=== PATIENT | male | born 1995 | race Caucasian/White ===

== ENCOUNTER 2018-03-28 07:04 | Emergency (ER) | payer OTHER ==
[2018-03-28 08:24] VITALS: BP 138/70; PULSE 65; TEMP 98.3; BMI 21.4
[2018-03-28] MEDS ORDERED: RANITIDINE HCL 150 MG TABLET (FP) PO ONE (08:46)
[2018-03-28] MEDS ORDERED: MAG HYDROX/AL HYDROX/SIMETH 30 ML UNIT-DOSE CUP PO ONE (08:47)
[2018-03-28] MEDS ORDERED: MAG HYDROX/AL HYDROX/SIMETH 30 ML UNIT-DOSE CUP ONE (08:55)
[2018-03-28] MEDS ORDERED: RANITIDINE HCL 150 MG TABLET (FP) ONE (08:55)
[2018-03-28 09:47] LABS: BASO % 0.3 % (0-2.0); EOS % 0.7 % (0-4.5); HEMATOCRIT 42.5 % (35.4-49); HEMOGLOBIN 14.6 GM/dL (11.7-16.9); LYMPH % 12.6 % (8-40); MCH 29.1 pg (25.7-33.7); MCHC 34.4 g/dl (32.0-35.9); MEAN CELL VOLUME 84.7 fl (80-96); MONO % 9.3 % (3.8-10.2); NEUT % 77.1 % (42.8-82.8); PLATELET COUNT 189 K/MM3 (134-434); RBC 5.01 M/mm3 (4.00-5.60); RDW 12.9 % (11.9-15.9); WHITE BLOOD COUNT 10.3 K/mm3 (4.0-10.0)
--- NOTE | 2018-03-28 09:48 | PDOC ---
History of Present Illness - General Chief Complaint: Pain, Acute Stated Complaint: PAIN Time Seen by Provider: 03/28/18 07:57 History Source: Patient - History of Present Illness Timing/Duration: reports: other Quality: reports: moderate Abdominal Pain Onset Location: reports: epigastric Pain Radiation: reports: no radiation Past History - Past Medical History Allergies/Adverse Reactions: Allergies Allergy/AdvReac Type Severity Reaction Status Date / Time No Known Allergies Allergy Verified 03/28/18 08:24 Home Medications: Ambulatory Orders Famotidine [Pepcid] 20 mg PO DAILY #14 tablet 03/28/18 Mag Hydrox/Al Hydrox/Simeth [Mylanta Suspension -] 30 ml PO Q6H #1 bottle Asthma: Yes COPD: No - Surgical History Abdominal Surgery: Yes (2 hernia repairs as a baby) - Immunization History Immunization Up to Date: Yes - Suicide/Smoking/Psychosocial Hx Smoking History: Never smoked Have you smoked in the past 12 months: No Number of Cigarettes Smoked Daily: 2 Information on smoking cessation initiated: No Hx Alcohol Use: No Drug/Substance Use Hx: No Substance Use Type: None Review of Systems - Review of Systems Constitutional: No: Chills, Fever Respiratory: No: Shortness of Breath Cardiac (ROS): No: Chest Pain ABD/GI: No: Blood Streaked Bowels, Constipated, Diarrhea, Nausea, Rectal Bleeding, Vomiting : No: Burning, Dysuria, Discharge, Flank Pain, Hematuria *Physical Exam - Vital Signs Last Vital Signs Temp Pulse Resp BP Pulse Ox 98.3 F 65 17 138/70 100 03/28/18 08:16 03/28/18 08:16 03/28/18 08:16 03/28/18 08:16 03/28/18 08:16 - Physical Exam General Appearance: Yes: Appropriately Dressed. No: Apparent Distress HEENT: positive: Normal Voice Neck: positive: Supple Respiratory/Chest: positive: Lungs Clear, Normal Breath Sounds. negative: Respiratory Distress Cardiovascular: positive: Regular Rate, S1, S2 Gastrointestinal/Abdominal: positive: Tender (to epigastrium and minimally to LUQ, NT over mcburneys and no CVAT) Musculoskeletal: negative: CVA Tenderness Integumentary: positive: Dry, Warm Neurologic: positive: Fully Oriented, Alert, Normal Mood/Affect ED Treatment Course - LABORATORY CBC & Chemistry Diagram: 03/28/18 09:18 03/28/18 09:18 - RADIOLOGY Radiology Studies Ordered: Category Date Time Status CHEST PA & LAT [RAD] Stat Radiology 03/28/18 08:46 Ordered - Medications Given in the ED: ED Medications Discontinued Medications Generic Name Dose Route Start Last Admin Trade Name Danae PRN Reason Stop Dose Admin Al Hydroxide/Mg Hydroxide 30 ml 03/28/18 08:47 03/28/18 08:58 Mylanta Oral Suspension - PO 03/28/18 08:48 30 ml ONCE ONE Administration Ranitidine HCl 150 mg 03/28/18 08:46 03/28/18 08:58 Zantac - PO 03/28/18 08:47 150 mg ONCE ONE Administration Medical Decision Making - Medical Decision Making 03/28/18 09:45 23-year-old male, denies any past medical history, smoker 1 year, presents with abdominal pain. Patient complaining of upper abdominal pain that started at 3:30 AM today, describes as sharp and burning with 7 out of 10 in intensity, perhaps better after drinking juice this a.m. No nausea, vomiting, change in bowel movements, dysuria, hematuria, chest pain or shortness of breath. No history of similar pain. Denies any obvious inciting factors like unusual food or excessive alcohol prior to symptoms. Does not take NSAIDs. No history of gallstones or kidney stones See exam Possibly gastritis, unlikely pancreatitis, mark, renal colic or appy Stable and in NAD w/ ttp to epigastrium mostly on exam -GI cocktail -labs -cxr given c/o cough x 2 months -reassess 03/28/18 10:27 Patient reports feeling better after medication. Labs unremarkable. Chest x- ray negative and patient advised to stop smoking. To follow-up with PMD next week *DC/Admit/Observation/Transfer Diagnosis at time of Disposition: Gastritis Qualifiers: Gastritis type: unspecified gastritis Chronicity: acute Gastritis bleeding: without bleeding Qualified Code(s): K29.00 - Acute gastritis without bleeding - Discharge Dispostion Disposition: HOME Condition at time of disposition: Improved - Prescriptions Prescriptions: Famotidine [Pepcid] 20 mg PO DAILY #14 tablet Mag Hydrox/Al Hydrox/Simeth [Mylanta Suspension -] 30 ml PO Q6H #1 bottle - Referrals Referrals: Kyree Soriano MD [Primary Care Provider] - - Patient Instructions Printed Discharge Instructions: Gastritis, Smoking Cessation Additional Instructions: You were treated for possibly gastritis. Your blood work was normal Take medications as directed and please follow up with your PMD in 1 week Your CXR was normal today but please strongly consider stopping smoking in order to prevent further complications - Post Discharge Activity Forms/Work/School Notes: Back to Work
[2018-03-28 10:02] LABS: URINE APPEARANCE CLEAR; URINE BILIRUBIN NEGATIVE (<2.0 mg/dL); URINE COLOR YELLOW; URINE GLUCOSE (UA) NEGATIVE (NEGATIVE); URINE KETONE NEGATIVE (NEGATIVE); URINE LEUK ESTERASE NEGATIVE (NEGATIVE); URINE NITRITE NEGATIVE (NEGATIVE); URINE PROTEIN NEGATIVE (NEGATIVE); URINE UROBILINOGEN NEGATIVE mg/dL (0.2-1.0)
[2018-03-28 10:03] LABS: ALBUMIN 4.2 g/dl (3.4-5.0); ALK PHOS 62 U/L (45-117); ANION GAP 5 (8-16); BILIRUBIN,TOTAL 1.1 mg/dL (0.2-1.0); BLOOD UREA NITROGEN 19 mg/dL (7-18); CALCIUM 9.4 mg/dL (8.5-10.1); CHLORIDE 107 mmol/L (98-107); CO2 30 mmol/L (21-32); CREATININE 0.9 mg/dL (0.7-1.3); GLUCOSE,RANDOM 88 mg/dL (74-106); LIPASE 83 U/L (73-393); POTASSIUM 4.2 mmol/L (3.5-5.1); SGOT/AST 20 U/L (15-37); SGPT/ALT 33 U/L (12-78); SODIUM 142 mmol/L (136-145); TOT PROT 7.2 g/dl (6.4-8.2)
== END 2018-03-28 10:28 | disposition home or self-care (01) ==
LOC: JERFT 07:04
DX: K29.00 Acute gastritis without bleeding (principal); J45.909 Unspecified asthma, uncomplicated
CPT/HCPCS: 36415; 71046-TC-FY; 80053; 81003; 83690; 85025; 99281-25

== ENCOUNTER 2018-08-24 05:52 | Emergency (ER) | payer OTHER ==
--- NOTE | 2018-08-24 06:16 | PDOC ---
History of Present Illness - General Chief Complaint: Cold Symptoms Stated Complaint: FEVER/CHILLS Time Seen by Provider: 08/24/18 06:13 History Source: Patient Exam Limitations: No Limitations - History of Present Illness Initial Comments: 23 yo M w no sig pmh presents to the ED with fevers up to 102.3 for two days, body aches, cough, SOB, chest pain, neck pain, and feeling completely out of whack. He reports he was last well on Friday. Then he got the cough, then the fevers, then everything tumbled down hill. He denies nausea, vomiting, diarrhea, constipation, abdominal pain, dysuria, frequency, urgency. PCP: Kyree Reed Allergies: NKA, NKDA Social Hx: smoker - 1 PPD Past History - Past Medical History Allergies/Adverse Reactions: Allergies Allergy/AdvReac Type Severity Reaction Status Date / Time No Known Allergies Allergy Verified 08/24/18 06:10 Home Medications: Ambulatory Orders Famotidine [Pepcid] 20 mg PO DAILY #14 tablet 03/28/18 Mag Hydrox/Al Hydrox/Simeth [Mylanta Suspension -] 30 ml PO Q6H #1 bottle Asthma: Yes COPD: No - Surgical History Abdominal Surgery: Yes (2 hernia repairs as a baby) - Immunization History Immunization Up to Date: Yes - Suicide/Smoking/Psychosocial Hx Smoking History: Never smoked Have you smoked in the past 12 months: No Number of Cigarettes Smoked Daily: 2 Information on smoking cessation initiated: No Hx Alcohol Use: No Drug/Substance Use Hx: No Substance Use Type: None Review of Systems - Review of Systems Able to Perform ROS?: Yes Comments:: CONSTITUTIONAL: Present: Fever, chills, fatigue. EYES: Present: visual changes ENT: Absent: ear pain, no sore throat CARDIOVASCULAR: Present: chest pain Absent: no palpitations RESPIRATORY: Present: Cough, SOB GI: Absent: abdominal pain, no nausea, no vomiting, no constipation, no diarrhea GENITOURINARY: Absent: dysuria, no frequency, no hematuria MUSKULOSKELETAL: Absent: back pain, no arthralgia, no myalgia SKIN: Absent: rash NEURO: Present: headache *Physical Exam - Vital Signs Last Vital Signs Temp Pulse Resp BP Pulse Ox 102.3 F H 105 H 18 124/65 95 08/24/18 06:02 08/24/18 06:02 08/24/18 06:02 08/24/18 06:02 08/24/18 06:02 - Physical Exam General Appearance: Yes: Nourished, Appropriately Dressed, Apparent Distress HEENT: positive: EOMI, KIESHA, Normal ENT Inspection, Normal Voice, Pharynx Normal , Nasal Congestion, Rhinorrhea. negative: Sinus Tenderness Neck: positive: Trachea midline, Supple. negative: Decreased range of motion Respiratory/Chest: positive: Chest Tender, Lungs Clear, Normal Breath Sounds, Rapid RR. negative: Crackles, Rales, Rhonchi, Stridor, Wheezing Cardiovascular: positive: S1, S2, Tachycardia. negative: Edema Vascular Pulses: Dorsalis-Pedis (R): 2+, Doralis-Pedis (L): 2+ Gastrointestinal/Abdominal: positive: Normal Bowel Sounds, Soft. negative: Distended, Guarding, Rebound Rectal Exam: positive: deferred Lymphatic: negative: Adenopathy Musculoskeletal: positive: Normal Inspection. negative: CVA Tenderness Extremity: positive: Normal Capillary Refill, Normal Inspection, Normal Range of Motion Integumentary: positive: Normal Color, Dry, Warm Neurologic: positive: web ui developer II-XII NML intact, Fully Oriented, Alert, Normal Mood/ Affect, Normal Response Moderate Sedation - Procedure Monitoring Vital Signs: Procedure Monitoring Vital Signs Temperature 102.3 F H 08/24/18 06:02 Pulse Rate 105 H 08/24/18 06:02 Respiratory Rate 18 08/24/18 06:02 Blood Pressure 124/65 08/24/18 06:02 O2 Sat by Pulse Oximetry (%) 95 08/24/18 06:02 ED Treatment Course - LABORATORY CBC & Chemistry Diagram: 08/24/18 06:33 08/24/18 06:33 Medical Decision Making - Medical Decision Making 23 yo M w no sig pmh presents to the ED with fevers up to 102.3 for two days, body aches, cough, SOB, chest pain, neck pain, and feeling completely out of whack. DDx IBNLT: Flu, PNA, URI, other infection, asthma, costochondritis Plan: Cbc, Cmp, Lactic, rapid flu, CXR, IV hydration, tylenol, re-assess. Patient will be signed out to day team. *DC/Admit/Observation/Transfer Diagnosis at time of Disposition: Fever - Referrals Referrals: Kyree Soriano MD [Primary Care Provider] - - Patient Instructions - Post Discharge Activity
[2018-08-24] MEDS ORDERED: ACETAMINOPHEN 1000 MG/100 ML VIAL (NON FORMULARY) IVPB ONE (06:17)
[2018-08-24] MEDS ORDERED: SODIUM CHLORIDE 0.9% 500 ML INFUS.BAG IV ONE (06:17)
[2018-08-24] MEDS ORDERED: ACETAMINOPHEN INJECTION 100 ML IVPB ONE (06:23)
[2018-08-24 06:42] VITALS: BMI 22.4
[2018-08-24 06:47] LABS: BASO % 0.2 % (0-2.0); EOS % 0.1 % (0-4.5); HEMATOCRIT 43.6 % (35.4-49); HEMOGLOBIN 15.5 GM/dL (11.7-16.9); LYMPH % 4.8 % (8-40); MCH 29.4 pg (25.7-33.7); MCHC 35.5 g/dl (32.0-35.9); MEAN PLT VOLUME 8.3 fl (7.5-11.1); MONO % 8.8 % (3.8-10.2); NEUT % 86.1 % (42.8-82.8); PLATELET COUNT 146 K/MM3 (134-434); RBC 5.26 M/mm3 (4.00-5.60); RDW 12.6 % (11.9-15.9); WHITE BLOOD COUNT 9.2 K/mm3 (4.0-10.0)
--- NOTE | 2018-08-24 07:00 | PDOC ---
Attending Attestation - Resident Resident Name: Wilfred Muse - ED Attending Attestation I have performed the following: I have examined & evaluated the patient, The case was reviewed & discussed with the resident, I agree w/resident's findings & plan, Exceptions are as noted - HPI HPI: 08/24/18 06:58 23 yo male with no pmhx, childhood asthma here with c/o cough , fever congestion , myalgia. also c/o nause, decreased appetitis. no abd pain no urinary complaints. cough productive of yellow phlegm. no sick contacts. no travel. - Physicial Exam PE: 08/24/18 06:59 awake alert faint crackles base lung no wheeze normal effort. heart reg tachycardia. abd soft nt nd. ext wwp no edema. no calf tenderness. nuero alert oriented x 3. skin warm and dry no rash. - Medical Decision Making 08/24/18 06:59 differential pna, influenza, sepsis. plan labs tylenol iv hydration. cxr
[2018-08-24] MEDS ORDERED: ONDANSETRON 4 MG/2 ML VIAL IVPUSH ONE (07:01)
[2018-08-24 07:14] LABS: ALK PHOS 61 U/L (45-117); ANION GAP 6 MMOL/L (8-16); BLOOD UREA NITROGEN 16 mg/dL (7-18); CALCIUM 8.3 mg/dL (8.5-10.1); CHLORIDE 101 mmol/L (98-107); CO2 30 mmol/L (21-32); CREATININE 1.3 mg/dL (0.55-1.3); GLUCOSE,RANDOM 103 mg/dL (74-106); POTASSIUM 3.8 mmol/L (3.5-5.1); SGOT/AST 23 U/L (15-37); SGPT/ALT 27 U/L (13-61); SODIUM 137 mmol/L (136-145); TOT PROT 7.2 g/dl (6.4-8.2)
[2018-08-24] MEDS ORDERED: ONDANSETRON 4 MG/2 ML VIAL ONE (07:16)
--- NOTE | 2018-08-24 07:43 | PDOC ---
*Physical Exam - Vital Signs Last Vital Signs Temp Pulse Resp BP Pulse Ox 102.3 F H 105 H 18 124/65 95 08/24/18 06:02 08/24/18 06:02 08/24/18 06:02 08/24/18 06:02 08/24/18 06:02 ED Treatment Course - LABORATORY CBC & Chemistry Diagram: 08/24/18 06:33 08/24/18 06:33 - ADDITIONAL ORDERS Additional order review: Laboratory Results 08/24/18 08/24/18 06:33 06:33 Sodium 137 Potassium 3.8 Chloride 101 Carbon Dioxide 30 Anion Gap 6 L BUN 16 Creatinine 1.3 Creat Clearance w eGFR > 60 Random Glucose 103 Lactic Acid 1.2 Calcium 8.3 L Total Bilirubin 1.0 AST 23 ALT 27 Alkaline Phosphatase 61 Total Protein 7.2 Albumin 4.0 08/24/18 06:33 RBC 5.26 MCV 83.0 MCHC 35.5 RDW 12.6 MPV 8.3 Neutrophils % 86.1 H Lymphocytes % 4.8 L D Monocytes % 8.8 Eosinophils % 0.1 D Basophils % 0.2 - Medications Given in the ED: ED Medications Discontinued Medications Generic Name Dose Route Start Last Admin Trade Name Freq PRN Reason Stop Dose Admin Acetaminophen 1,000 mg 08/24/18 06:17 08/24/18 06:37 Ofirmev Injection - IVPB 08/24/18 06:18 1,000 mg ONCE ONE Administration Ondansetron HCl 4 mg 08/24/18 07:01 08/24/18 07:20 Zofran Injection IVPUSH 08/24/18 07:02 4 mg ONCE ONE Administration Sodium Chloride 1,000 ml 08/24/18 06:17 08/24/18 06:36 Normal Saline - IV 08/24/18 06:18 1,000 ml ONCE ONE Administration Medical Decision Making - Medical Decision Making Pt signed out by Dr. Muse. Pt positive for Influenza A. Pt waiting for chest x -ray and will likely be discharged to home (flu vs pneumonia, pending chest x- ray). Will reassess vitals before pt is discharged. Side effect profile of Tamiflu was discussed with the pt, and we will treat the influenza supportively. 08/24/18 07:38 Pt pending staff for chest x-ray. Nursing and tech staff aware, will take pt for imaging once available. 08/24/18 08:18 Pt taken for chest x-ray. Pending results. 08/24/18 08:24 Chest x-ray shows no focal infiltrates. Pt can be discharged to home with follow -up. Pt advised to follow-up with PCP in 1-2 days. Strict return precautions provided with pt understanding. 08/24/18 08:33 *DC/Admit/Observation/Transfer Diagnosis at time of Disposition: Influenza A - Discharge Dispostion Disposition: HOME Condition at time of disposition: Improved Decision to Admit order: No - Referrals Referrals: Kyree Soriano MD [Primary Care Provider] - - Patient Instructions Printed Discharge Instructions: DI for Influenza -- Adult Additional Instructions: You were seen in the ER today for fever and cough. The results of your labs today show that you have the flu. Your chest x-ray showed no signs of pneumonia. Please follow-up with your primary care doctor within 1-2 days to discuss your visit and make sure your symptoms have improved. When you go home, please continue to drink plenty of fluids and you can take tylenol or ibuprofen for fever as needed. Please return to the ER if you have any worsening cough productive of colored sputum or blood, development of fevers or chills, loss of consciousness, inability to tolerate food or fluids, or any other concerns. - Post Discharge Activity
[2018-08-24 07:44] VITALS: BP 114/58; PULSE 106; TEMP 99.3
== END 2018-08-24 08:35 | disposition home or self-care (01) ==
LOC: JER 05:52
PROC: 3E033NZ Introduction of Analgesics, Hypnotics, Sedatives into Peripheral Vein, Percutaneous Approach (ICD-10-PCS; principal; 2018-08-24)
PROC: 3E033GC Introduction of Other Therapeutic Substance into Peripheral Vein, Percutaneous Approach (ICD-10-PCS; 2018-08-24)
PROC: 3E0337Z Introduction of Electrolytic and Water Balance Substance into Peripheral Vein, Percutaneous Approach (ICD-10-PCS; 2018-08-24)
DX: R50.9 Fever, unspecified (principal); J45.909 Unspecified asthma, uncomplicated
CPT/HCPCS: 36415; 71046-TC-FY; 80053; 83605; 85025; 87804; 99283-25; J0131

== ENCOUNTER 2021-04-27 18:15 | Emergency (ER) | payer OTHER ==
[2021-04-27 18:49] VITALS: BP 126/75; PULSE 75; TEMP 97.9; BMI 22.4
== END 2021-04-27 20:15 | disposition left against medical advice (07) ==
LOC: JER 18:15
DX: R10.12 Left upper quadrant pain (principal); R05 Cough
CPT/HCPCS: 99281-25